=== PATIENT | female | born 1955 | race African-American/Black ===

== ENCOUNTER 2017-11-08 16:36 | Emergency (ER) | payer OTHER ==
[~2017-11-08] VITALS: Ht 160 cm; Wt 72.7 kg
[~2017-11-08 16:36] MED LIST: CHLO50TA PO; LORA0.5T PO; METO50TA PO; ZOLP1TAB32 PO
[2017-11-08 16:38] VITALS: BP 219/100; PULSE 61; RESP 16; TEMP 97.8; O2SAT 99
[2017-11-08 16:50] VITALS: BP 157/101; PULSE 61; RESP 18; O2SAT 97
[2017-11-08 16:54] VITALS: BP 157/101; PULSE 63; RESP 18; O2SAT 97
[2017-11-08] MEDS ORDERED: MECLIZINE HCL 25 MG TAB PO ONE (18:00)
[2017-11-08 18:41] LABS: AUTOMATED NEUTROPHIL # 3.5 TH/MM3 (1.8-7.7); BASOPHIL % 0.7 % (0.0-2.0); EOSINOPHIL # 0.4 TH/MM3 (0-0.4); EOSINOPHIL % 5.1 % (0.0-4.0); HEMOGLOBIN 15.4 GM/DL (11.6-15.3); LYMPH % 37.6 % (9.0-44.0); LYMPHOCYTE # 2.6 TH/MM3 (1.0-4.8); MEAN CELL VOLUME 85.3 FL (80.0-100.0); MEAN CORPUSCULAR HEMOGLOBIN 29.1 PG (27.0-34.0); MEAN CORPUSCULAR HGB CONC 34.1 % (32.0-36.0); MEAN PLATELET VOLUME 9.2 FL (7.0-11.0); MONO % 6.4 % (0.0-8.0); MONOCYTE # 0.5 TH/MM3 (0-0.9); NEUT % 50.2 % (16.0-70.0); PLATELET COUNT 231 TH/MM3 (150-450); RED BLOOD COUNT 5.28 MIL/MM3 (4.00-5.30); RED CELL DISTRIBUTION WIDTH 12.9 % (11.6-17.2)
[2017-11-08 18:42] LABS: BACTERIA, URINE RARE /hpf; BILIRUBIN, URINE NEG (NEG); BLOOD, URINE NEG (NEG); GLUCOSE,URINE NEG (NEG); KETONE, URINE NEG (NEG); NITRITE,URINE NEG (NEG); PH, URINE 6.5 (5.0-8.5); SQUAMOUS EPITHELIAL CELL URINE 1 /hpf (0-5); URINE COLOR COLORLESS (YELLW/STRAW); URINE LEUKOCYTE ESTERASE NEG (NEG)
--- NOTE | 2017-11-08 18:43 | PD ---
HPI Chief Complaint: Abnormal Results Time Seen by Provider: 17:09 Travel History International Travel<30 days: No Contact w/Intl Traveler<30days: No Traveled to known affect area: No History of Present Illness HPI 62-year-old female presents emergency department for evaluation of elevated blood pressure and lightheadedness. Patient states she's had issues regarding her blood pressure and her primary care is working on it. Patient monitors her blood pressure daily. Around noon today he took her blood pressure and it was very elevated at 220 systolically the patient was experiencing lightheadedness and dizziness. The patient took a Norvasc and lorazepam when her blood pressure was elevated and came to the emergency department. The patient denies any nausea, vomiting, diarrhea, abdominal pain, chest pain, shortness of breath , cough, fever, chills, malaise. Patient denies any tinnitus or nausea associated with the lightheadedness. Patient denies any major medical history outside of hypertension. PFSH Past Medical History Heart Rhythm Problems: Yes (VENTRICULAR TACHYCARDIA) Cardiovascular Problems: Yes (HTN ) Endocrine: No Genitourinary: No Hepatitis: No Hiatal Hernia: No Hypertension: Yes Immune Disorder: No Medical other: Yes (HEMOCHROMATOSIS) Musculoskeletal: No Neurologic: No Reproductive: No Respiratory: No Thyroid Disease: No Tetanus Vaccination: Unknown Past Surgical History Abdominal Surgery: Yes AICD: No Cardiac Surgery: Yes (ABLATION 2006) Section: Yes Ear Surgery: No Endocrine Surgery: No Eye Surgery: No Genitourinary Surgery: No Gynecologic Surgery: Yes (C SECTION X 2, HYST) Hysterectomy: Yes (PARTIAL) Oral Surgery: Yes (TONSILLECTOMY) Pacemaker: No Thoracic Surgery: No Other Surgery: Yes Social History Alcohol Use: No Tobacco Use: No Substance Use: No Allergies-Medications (Allergen,Severity, Reaction): Coded Allergies: No Known Allergies (Verified , 06/28/15) Reported Meds & Prescriptions Reported Meds & Active Scripts Active Zofran Odt (Ondansetron Odt) 4 Mg Tab 4 Mg SL Q6HR PRN Meclizine (Meclizine HCl) 25 Mg Tab 25 Mg PO TID PRN Reported Ambien (Zolpidem Tartrate) 5 Mg Tab 5 Mg PO HS PRN Ativan (Lorazepam) 0.5 Mg Tab 0.5 Mg PO BID PRN Amlodipine (Amlodipine Besylate) 5 Mg Tab 5 Mg PO DAILY Losartan (Losartan Potassium) Unknown Strength Tab 1 Tab PO DAILY Metoprolol Tartrate Unknown Strength Tab 0.5 Tab PO BID Review of Systems Except as stated in HPI: all other systems reviewed are Neg Physical Exam Narrative GENERAL: Well-nourished, well-developed 62-year-old female patient in no acute distress. Nontoxic appearing. SKIN: Focused skin assessment warm/dry. HEAD: Normocephalic. Atraumatic. NEUROLOGICAL: Awake and alert. Cranial nerves II through XII intact. Motor and sensory grossly within normal limits. Five out of 5 muscle strength in all muscle groups. Normal speech. EYES: No scleral icterus. No injection or drainage. NECK: Supple, trachea midline. No JVD or lymphadenopathy. CARDIOVASCULAR: Regular rate and rhythm without murmurs, gallops, or rubs. RESPIRATORY: Breath sounds equal bilaterally. No accessory muscle use. GASTROINTESTINAL: Abdomen soft, non-tender, nondistended. MUSCULOSKELETAL: No cyanosis, or edema. BACK: Nontender without obvious deformity. No CVA tenderness. Data Data Last Documented VS Vital Signs Date Time Temp Pulse Resp B/P (MAP) Pulse Ox O2 Delivery O2 Flow Rate FiO2 11/08/17 19:05 56 18 133/78 (96) 99 Room Air 11/08/17 16:38 97.8 Orders Orders Electrocardiogram (11/08/17 17:52) Basic Metabolic Panel (Bmp) (11/08/17 17:52) Complete Blood Count With Diff (11/08/17 17:52) Urinalysis - C+S If Indicated (11/08/17 17:52) Blood Glucose (11/08/17 17:52) Ecg Monitoring (11/08/17 17:52) Iv Access Insert/Monitor (11/08/17 17:52) Meclizine (Antivert) (11/08/17 18:00) Ed Discharge Order (11/08/17 19:43) Labs Laboratory Tests Test 11/08/17 18:08 11/08/17 18:20 White Blood Count 7.0 TH/MM3 Red Blood Count 5.28 MIL/MM3 Hemoglobin 15.4 GM/DL Hematocrit 45.0 % Mean Corpuscular Volume 85.3 FL Mean Corpuscular Hemoglobin 29.1 PG Mean Corpuscular Hemoglobin Concent 34.1 % Red Cell Distribution Width 12.9 % Platelet Count 231 TH/MM3 Mean Platelet Volume 9.2 FL Neutrophils (%) (Auto) 50.2 % Lymphocytes (%) (Auto) 37.6 % Monocytes (%) (Auto) 6.4 % Eosinophils (%) (Auto) 5.1 % Basophils (%) (Auto) 0.7 % Neutrophils # (Auto) 3.5 TH/MM3 Lymphocytes # (Auto) 2.6 TH/MM3 Monocytes # (Auto) 0.5 TH/MM3 Eosinophils # (Auto) 0.4 TH/MM3 Basophils # (Auto) 0.0 TH/MM3 CBC Comment DIFF FINAL Differential Comment Blood Urea Nitrogen 13 MG/DL Creatinine 0.92 MG/DL Random Glucose 92 MG/DL Calcium Level 9.2 MG/DL Sodium Level 139 MEQ/L Potassium Level 3.9 MEQ/L Chloride Level 106 MEQ/L Carbon Dioxide Level 26.1 MEQ/L Anion Gap 7 MEQ/L Estimat Glomerular Filtration Rate 75 ML/MIN Urine Color COLORLESS Urine Turbidity CLEAR Urine pH 6.5 Urine Specific [place] 1.006 Urine Protein NEG mg/dL Urine Glucose (UA) NEG mg/dL Urine Ketones NEG mg/dL Urine Occult Blood NEG Urine Nitrite NEG Urine Bilirubin NEG Urine Urobilinogen LESS THAN 2.0 MG/DL Urine Leukocyte Esterase NEG Urine WBC 1 /hpf Urine Squamous Epithelial Cells 1 /hpf Urine Bacteria RARE /hpf Microscopic Urinalysis Comment CULT NOT INDICATED MDM Medical Decision Making Medical Screen Exam Complete: Yes Emergency Medical Condition: Yes Differential Diagnosis Differential diagnoses include but are not limited to electrolyte abnormality, vertigo, coronary event, arrhythmia Narrative Course Patient placed on monitor, IV obtained, blood work sent to the lab, CBC, BMP, UA ordered and pending. 12-lead EKG ordered and pending. 25 mg by mouth meclizine ordered. Blood work shows no acute abnormality. Urinalysis shows no acute abnormality. EKG was sinus rhythm. Patient reports symptoms have resolved and she is feeling much better after the meclizine. Patient will be discharged home with prescription for meclizine and Zofran and instructions to return to the emergency Department with any worsening condition but otherwise follow-up with her primary care. Diagnosis Primary Impression: Lightheadedness Referrals: Primary Care Physician Patient Instructions: General Instructions, Lightheadedness (ED) Departure Forms: Tests/Procedures, Work Release Enter return to work date: Nov 12, 2017 Additional Instructions: Please return to emergency department if your symptoms return or worsen. Follow up with your primary care provider. Take meclizine as directed as needed for lightheadedness/vertigo Take Zofran as directed as needed for nausea Med/Other Pt SpecificInfo: Prescription(s) given Scripts Ondansetron Odt (Zofran Odt) 4 Mg Tab 4 MG SL Q6HR Y for Nausea/Vomiting, #15 TAB 0 Refills Prov: Gissel Mcintosh 11/08/17 Meclizine (Meclizine) 25 Mg Tab 25 MG PO TID Y for VERTIGO, #12 TAB 0 Refills Prov: Gissel Mcintosh 11/08/17 Disposition: 01 DISCHARGE HOME Condition: Stable Gissel Mcintosh Nov 08, 2017 18:43
[2017-11-08 18:58] LABS: BICARBONATE 26.1 MEQ/L (21.0-32.0); CALCIUM 9.2 MG/DL (8.5-10.1); CREATININE 0.92 MG/DL (0.50-1.00)
[2017-11-08 19:05] VITALS: BP 133/78; PULSE 56; RESP 18; O2SAT 99
[2017-11-08] MEDS ORDERED: AMBI5TAB PO (19:10)
[2017-11-08] MEDS ORDERED: METO25TA3 PO (19:10)
[2017-11-08] MEDS ORDERED: LOSA25TA PO (19:10)
[2017-11-08] MEDS ORDERED: AMLO5TAB2 PO (19:10)
[2017-11-08] MEDS ORDERED: LORA-392 PO (19:10)
[2017-11-08] MEDS ORDERED: MECL-62 PO (19:42)
[2017-11-08] MEDS ORDERED: ZOFR4TAB3 SL (19:42)
--- NOTE | 2017-11-10 12:10 | EKG ---
Date Performed: 11/08/2017 Time Performed: 18:34:33 PTAGE: 62 years EKG: Sinus rhythm NONSPECIFIC T-WAVE ABNORMALITY BORDERLINE ECG PREVIOUS TRACING : 10/25/2005 05.16 DOCTOR: Rowan Stephenson Interpretating Date/Time 11/10/2017 12:09:08
== END 2017-11-08 20:20 | disposition home or self-care (01) ==
LOC: NEPC 16:36
DX: R42 Dizziness and giddiness (principal); I10 Essential (primary) hypertension
CPT/HCPCS: 80048; 81001; 85025; 93005; 99285